=== PATIENT | female | born 1945 ===

== ENCOUNTER 2024-04-09 09:15 | Inpatient (IN) | payer OTHER ==
[~2024-04-09] VITALS: Ht 152.4 cm; Wt 65.8 kg
[2024-04-17] MEDS ORDERED: CEFTRIAXONE SODIUM 2,000 MG VIAL IV ONE (14:15)
[2024-04-17] MEDS ORDERED: METRONIDAZOLE/SODIUM CHLORIDE 500 MG/100 ML PIGGYBACK IV ONE (14:15)
[2024-04-17] MEDS ORDERED: MORPHINE SULFATE 2 MG/ML CARTRIDGE IV ONE (15:35)
[2024-04-17] MEDS ORDERED: MAGNESIUM SULFATE IN WATER 2 GM/50 ML PIGGYBAG IV ONE (17:00)
[2024-04-17] MEDS ORDERED: MORPHINE SULFATE 4 MG/ML VIAL IV ONE (17:45)
[2024-04-17] MEDS ORDERED: MORPHINE SULFATE 4 MG/ML CARTRIDGE IV PRN (17:45)
[2024-04-17] MEDS ORDERED: GABAPENTIN 300 MG CAPSULE PO SCH (17:45)
[2024-04-17] MEDS ORDERED: ENALAPRILAT DIHYDRATE 1.25 MG/ML VIAL IV PRN (18:00)
[2024-04-17 18:57] LABS: HEMATOCRIT 35.5 % (36.0-45.00); HEMOGLOBIN 11.8 g/dL (12.0-15.00); MEAN CELL VOLUME 91.1 fL (80.00-100.00); MEAN CORPUSCULAR HEMOGLOBIN 30.3 pg (27.00-32.0); MEAN CORPUSCULAR HGB CONC 33.2 g/dl (32.0-36.0); PLATELET COUNT 210 K/uL (150-450); RED CELL DISTRIBUTION WIDTH 14.4 % (11.5-14.5)
[2024-04-17 19:40] LABS: ALBUMIN 3.2 gm/dL (3.4-5.0); CALCIUM 8.9 mg/dL (8.5-10.1); CREATININE SERUM 0.78 mg/dL (0.55-1.02); GFR 71.06; PHOSPHOROUS 2.9 mg/dL (2.5-4.9); POTASSIUM 4.4 mEq/L (3.5-5.1)
[2024-04-17 20:35] VITALS: BP 139/59; O2SAT 98
[2024-04-17 20:44] VITALS: BP 139/59
[2024-04-17] MEDS ORDERED: MEMANTINE HCL 10 MG TABLET PO SCH (21:00)
[2024-04-17] MEDS ORDERED: FAMOTIDINE/PF 20 MG/2 ML VIAL IV SCH (21:00)
[2024-04-18 01:00] VITALS: BP 152/67; O2SAT 96
[2024-04-18 08:16] VITALS: BP 141/63; O2SAT 97
[2024-04-18 08:25] LABS: HEMATOCRIT 32.8 % (36.0-45.00); HEMOGLOBIN 11.2 g/dL (12.0-15.00); MEAN CELL VOLUME 90.1 fL (80.00-100.00); MEAN CORPUSCULAR HEMOGLOBIN 30.7 pg (27.00-32.0); MEAN CORPUSCULAR HGB CONC 34.1 g/dl (32.0-36.0); PLATELET COUNT 201 K/uL (150-450); RED BLOOD COUNT 3.64 M/uL (4.00-6.00); RED CELL DISTRIBUTION WIDTH 14.1 % (11.5-14.5)
[2024-04-18 08:51] LABS: ALBUMIN 2.9 gm/dL (3.4-5.0); CALCIUM 8.6 mg/dL (8.5-10.1); CREATININE SERUM 0.71 mg/dL (0.55-1.02); GFR 79.2; PHOSPHOROUS 2.5 mg/dL (2.5-4.9); POTASSIUM 4.47 mEq/L (3.5-5.1)
[2024-04-18] MEDS ORDERED: ENOXAPARIN SODIUM 40 MG/0.4 ML SYRINGE SUBCUTANEO SCH (09:00)
[2024-04-18] MEDS ORDERED: ATENOLOL 25 MG TABLET PO SCH (09:00)
[2024-04-18] MEDS ORDERED: IRBESARTAN 150 MG TABLET PO SCH (09:00)
[2024-04-18] MEDS ORDERED: POLYETHYLENE GLYCOL 3350 17 GM BLIST.PACK PO SCH (09:00)
[2024-04-18] MEDS ORDERED: ATORVASTATIN CALCIUM 10 MG TABLET PO SCH (17:00)
[2024-04-18 18:02] VITALS: BP 139/63; O2SAT 95
[2024-04-19] VITALS: BP 134/63; O2SAT 96
[2024-04-19 08:12] VITALS: BP 132/62; O2SAT 99
[2024-04-19 08:36] LABS: CREATININE SERUM 0.77 mg/dL (0.55-1.02); GFR 72.13; HEMATOCRIT 32.4 % (36.0-45.00); MAGNESIUM 1.8 mg/dL (1.8-2.4); MEAN CELL VOLUME 89.4 fL (80.00-100.00); MEAN CORPUSCULAR HEMOGLOBIN 30.4 pg (27.00-32.0); PHOSPHOROUS 2.2 mg/dL (2.5-4.9); PLATELET COUNT 192 K/uL (150-450); POTASSIUM 4.1 mEq/L (3.5-5.1); RED BLOOD COUNT 3.62 M/uL (4.00-6.00); RED CELL DISTRIBUTION WIDTH 14.3 % (11.5-14.5)
[2024-04-19] MEDS ORDERED: POTASSIUM PHOS,M-BASIC-D-BASIC 3 MM/ML VIAL IV NR (09:15)
[2024-04-19 15:48] VITALS: BP 152/66; O2SAT 95
[2024-04-19] MEDS ORDERED: GABAPENTIN 100 MG CAPSULE PO SCH (17:00)
[2024-04-19] MEDS ORDERED: GABAPENTIN 300 MG CAPSULE PO SCH (21:00)
[2024-04-20] VITALS: BP 101/49; O2SAT 96
[2024-04-20 08:47] VITALS: BP 151/67; O2SAT 97
[2024-04-20 16:07] VITALS: BP 134/62; O2SAT 98
[2024-04-21 00:15] VITALS: BP 131/63; O2SAT 97
[2024-04-21] MEDS ORDERED: NEURONTIN300 MG PO (08:59)
[2024-04-21] MEDS ORDERED: LEVSIN/SL0.125 MG SL (08:59)
[2024-04-21] MEDS ORDERED: ACETAMINOPHEN500 M2 PO (09:00)
[2024-04-21] MEDS ORDERED: INTESTINEX680 M2 PO (09:00)
[2024-04-21 09:45] VITALS: BP 166/69; O2SAT 96
== END 2024-04-21 11:19 | disposition home or self-care (01) | DRG 330 ==
LOC: ADM 09:15 → EDSTATUS 04-17 09:15 → SURH 04-17 09:15 → CIR.AMB 04-17 09:15 → O/R 04-17 09:25 → SURG 04-17 09:25 → CIR.AMB 04-17 15:00 → SURG 04-17 15:43 → SURH 04-20 16:21
PROVIDERS: Internal Medicine Geriatric Medicine; ADMIT Surgery; ATTEND Surgery
PROC: 07BB4ZZ Excision of Mesenteric Lymphatic, Percutaneous Endoscopic Approach (ICD-10-PCS; 2024-04-17)
PROC: 0DTF4ZZ Resection of Right Large Intestine, Percutaneous Endoscopic Approach (ICD-10-PCS; principal; 2024-04-17 15:00)
DX: C18.2 Malignant neoplasm of ascending colon (principal); K92.1 Melena; R59.0 Localized enlarged lymph nodes